=== PATIENT | male | born 1990 | race Caucasian/White ===

== ENCOUNTER 2019-01-27 06:27 | Day surgery (SDC) | payer OTHER ==
[2019-01-27] VITALS (12 sets, daily range): BP systolic 110–120; BP diastolic 58–73; PULSE 60–72; RESP 13–20; Ht 175.3 cm; Wt 92.0 kg
[~2019-01-27] VITALS: Ht 175.3 cm; Wt 92.0 kg
[~2019-01-27 06:27] MED LIST: BUPIVACAINE 0.25% (MPF) 30 ML INJ INJ ONE
[2019-01-27] MEDS ORDERED: BUPIVACAINE 0.25% (MPF) 30 ML INJ ONE (07:36)
--- NOTE | 2019-01-27 08:15 | PREAC ---
Date/Time of Note Date/Time of Note DATE: 01/27/19 TIME: 08:14 Anesthesia Eval and Record Evaluation Time Pre-Procedure Interview DATE: 01/27/19 TIME: 08:14 Age 28 Sex male NPO: 8 hrs Preoperative diagnosis back mass Planned procedure excision back mass Past Medical History Past Medical History: None Surgery & Anesthesia Issues No known issue Meds Anticoagulation: No Beta Pa within 24 hr: No Reason Beta Pa not given: Pt. not on B-Pa No Active Prescriptions or Reported Meds Meds reviewed: Yes Allergies Coded Allergies: No Known Drug Allergies (Verified Allergy, Unknown, 01/27/19) Allergies Reviewed: Yes Labs/Studies Labs Reviewed: Reviewed by anesthesiologist test: N/A Pre-procedure Exam Last vitals Vital Signs Date Temp Pulse Resp B/P (MAP) Pulse Ox O2 O2 Flow FiO2 Time Delivery Rate 01/27/19 98.0 63 16 117/69 98 Room Air 07:11 (85) Airway: Adequate mouth opening, Adequate thyromental dist Mallampati: Mallampati III Teeth: Normal Lung: Normal Heart: Normal ASA Physical Status ASA physical status: 1 Emergency: None Pre-operative Attestations Prior to commencing anesthesia and surgery, the patient was re-evaluated, there was verification of: *The patient's identity *The results of appropriate recent lab work and preoperative vital signs *The above evaluation not changing prior to induction *Anesthetic plan, risk benefits, alternative and complications discussed with patient/family; questions answered; patient/family understands, accepts and wishes to proceed. ALICE JAIN DO Jan 27, 2019 08:15
[2019-01-27] MEDS ORDERED: ONDANSETRON 4 MG INJ IV PRN (08:30)
[2019-01-27] MEDS ORDERED: HYDROmorphONE 1 MG/5 ML IV SYRINGE IV PRN (08:30)
[2019-01-27] MEDS ORDERED: MIDAZOLAM 1 MG/ML 2 ML INJ ONE (08:34)
[2019-01-27] MEDS ORDERED: FENTAnyl 50 MCG/ML VIAL ONE (08:34)
[2019-01-27] MEDS ORDERED: LIDOCAINE 2% (SDV) 5 ML INJ ONE (08:47)
[2019-01-27] MEDS ORDERED: CEFAZOLIN 1 GM INJ ONE (08:47)
[2019-01-27] MEDS ORDERED: PROPOFOL 20 ML ONE (08:47)
[2019-01-27] MEDS ORDERED: ONDANSETRON 4 MG INJ ONE (08:51)
[2019-01-27] MEDS ORDERED: BUPIVACAINE 0.25% (MPF) 30 ML INJ INJ ONE (09:20)
--- NOTE | 2019-01-27 09:20 | PAC ---
Date/Time of Note Date/Time of Note DATE: 01/27/19 TIME: 09:19 Post-Anesthesia Notes Post-Anesthesia Note Last documented vital signs Vital Signs Date Temp Pulse Resp B/P (MAP) Pulse Ox O2 O2 Flow FiO2 Time Delivery Rate 01/27/19 98 80 18 115/65 98 Room Air 0919 Activity: WNL Respiratory function: WNL Cardiovascular function: WNL Mental status: Baseline Pain reasonably controlled: Yes Hydration appropriate: Yes Nausea/Vomiting absent: Yes ALICE JAIN DO Jan 27, 2019 09:20
[2019-01-27] MEDS: HYDROmorphONE 1 MG/5 ML IV SYRINGE IV PRN ×2 (09:29→09:35)
[2019-01-27] MEDS ORDERED: HYDROCODONE/APAP (5/325) TAB PO ONE (09:30)
--- NOTE | 2019-01-27 09:32 | OPR ---
Date/Time of Note Date/Time of Note DATE: 01/27/19 TIME: 09:09 Operative Report Procedure Date: Jan 27, 2019 Preoperative Diagnosis right back tumor Postoperative Diagnosis same Operation/Procedure Performed 1. excision of right back tumor 10 cm tumor and 10 cm incision 2. localized adjacent tissue transfer with the use of skin flaps 20 sq cm defect of right back 3. therapeutic injection of subcutaneous local anesthesia Surgeon see signature line Clinical Laboratory Scientist none Anesthesia Type: general Estimated Blood Loss: 0 - 10 ml's Transfusion none Specimen right back mass Grafts/Implants none Complications none Pt Condition Post Procedure: stable Indications This is a 28-year-old male with a right back tumor. He requires surgical excision of the back tumor. Risks alternatives benefits and percent were discussed the patient. In particular potential complications that were discussed for increased bleeding infection possible wound dehiscence and possible recurrence of the mass and need for additional surgeries were discussed. Patient expressed understanding consents to the operation. Procedure Description Patient taken to the OR and prepped and draped in usual sterile fashion. Surgical time was performed. IV antibiotics were given. Transverse incision was made with a 10 blade over the right upper back tumor. Dissection with cautery was carried onto the tumor and the tumor circumferentially excised. Good hemostasis established. Due to tissue defect localized adjacent to his transfer with use of skin flaps was performed. Multilayer closure with interrupted 3-0 Vicryl and skin joselin. Therapeutic contains local anesthesia was injected at the incision site. Dry dressings were applied. Adarsh ESTRADA Jan 27, 2019 09:32
== END 2019-01-27 10:52 | disposition home or self-care (01) ==
LOC: SDS 06:27
PROVIDERS: ATTEND Surgery
DX: D17.1 Benign lipomatous neoplasm of skin and subcutaneous tissue of trunk (principal)
CPT/HCPCS: 14001; 88307; J0690; J1170; J2250; J2405; J3010; Z7512; Z7610